=== PATIENT | male | born 1965 | race Hispanic/Latino ===

== ENCOUNTER 2024-05-16 15:45 | Inpatient (IN) | payer OTHER ==
[~2024-05-16] VITALS: Ht 170.2 cm; Wt 124.7 kg
[2024-05-16 17:50] LABS: BASOPHILS % 0.3 % (0.0-1.0); EOSINOPHILS # (AUTO) 0.1 (0.0-0.4); EOSINOPHILS % 0.4 % (0.0-6.0); HEMATOCRIT 49.3 % (38.2-49.6); HEMOGLOBIN 16.7 g/dL (14.0-18.0); LYMPHOCYTES # (AUTO) 1.9 (1.0-3.2); LYMPHOCYTES % 16.3 % (18.0-39.1); MEAN CORPUSCULAR HEMOGLOBIN 32.5 pg (28-32); MEAN CORPUSCULAR HGB CONC 33.9 g/dL (31-35); MEAN CORPUSCULAR VOLUME 95.9 fL (81-99); MONOCYTES # (AUTO) 0.7 (0.2-0.8); MONOCYTES % 6.2 % (4.4-11.3); NEUTROPHILS # (AUTO) 8.7 (2.1-6.9); NEUTROPHILS % 76.5 % (38.7-80.0); PLATELET COUNT 265 x10e3/uL (140-360); RED BLOOD COUNT 5.14 x10e6/uL (4.3-5.7); RED CELL DISTRIBUTION WIDTH 12.8 % (11.7-14.4); WHITE BLOOD COUNT 11.44 x10e3/uL (4.8-10.8)
[2024-05-16 17:58] LABS: INR 1.08; PROTHROMBIN TIME 14.7 seconds (11.9-14.5)
[2024-05-16 17:59] LABS: PARTIAL THROMBOPLASTIN TIME 28.3 seconds (23.8-35.5)
[2024-05-16 18:04] LABS: ALBUMIN 3.7 g/dL (3.5-5.0); ALBUMIN/GLOBULIN RATIO 0.9 (0.8-2.0); ANION GAP 14.3 mmol/L (8-16); BILIRUBIN,TOTAL 3.6 mg/dL (0.2-1.2); CALCIUM 9.9 mg/dL (8.4-10.2); CREATININE, SERUM 0.92 mg/dL (0.72-1.25); TOTAL PROTEIN 7.8 g/dL (6.5-8.1)
[2024-05-16 18:05] LABS: POTASSIUM 3.3 mmol/L (3.5-5.1)
[2024-05-16] MEDS ORDERED: IOPAMIDOL 370 MG/ML 100 ML INFUS..BTL INJ ONE (18:08)
[2024-05-16 18:50] LABS: CLARITY,URINE SL CLOUDY (CLEAR); COLOR,URINE ORANGE (YELLOW); GLUCOSE, URINE NEGATIVE (NEGATIVE); KETONES,URINE 1+ (NEGATIVE); LEUKOCYTE ESTERASE ,URINE NEGATIVE (NEGATIVE); NITRITE,URINE NEGATIVE (NEGATIVE); PH,URINE 5.5 (5 - 7); PROTEIN,URINE DIPSTICK 1+ (NEGATIVE); URINE UROBILINOGEN 0.2 mg/dL (0.2 - 1)
[2024-05-16 18:51] LABS: BILIRUBIN,URINE LARGE (NEGATIVE)
[2024-05-16 18:58] LABS: AMORPHOUS SEDIMENT,URINE MODERATE (FEW); BACTERIA,URINE RARE /HPF; RBC,URINE 0-5 /HPF (0-5); WBC,URINE (MAN) 0-5 /HPF (0-5)
[2024-05-16] MEDS: SODIUM CHLORIDE 0.9% 1000ML 1,000 ML IV ONE (19:00)
[2024-05-16] MEDS ORDERED: Morphine 4mg INJECTION 4 MG/ML INJ IV PRN (20:00)
[2024-05-16] MEDS ORDERED: ONDANSETRON HCL INJ 2MG/ML 2ML 2 MG/ML VIAL IV PRN (20:00)
[2024-05-16 23:00] VITALS: TEMP 98
[2024-05-17] VITALS (9 sets, daily range): BP systolic 124–158; BP diastolic 79–92; PULSE 61–88; RESP 16–20; TEMP 97.7–98.5; O2SAT 97–100
[2024-05-17] MEDS: SODIUM CHLORIDE 0.9% 1000ML 1,000 ML IV SCH (01:03)
[2024-05-17] MEDS ORDERED: ASPIRIN81 MG PO (02:58)
[2024-05-17] MEDS ORDERED: OMEGA-31000 MG PO (03:09)
[2024-05-17] MEDS ORDERED: LOPRESSOR25 MG PO (03:09)
[2024-05-17] MEDS ORDERED: zinc PO (03:09)
[2024-05-17] MEDS ORDERED: PANTOPRAZOLE SO40 MG PO (03:09)
[2024-05-17] MEDS ORDERED: CICLOPIROX6.6 ML TOP (03:09)
[2024-05-17] MEDS ORDERED: MULTI-VITAMIN1 EACH PO (03:09)
[2024-05-17] MEDS ORDERED: KETOCONAZOLE120 ML TOP (03:09)
[2024-05-17 05:32] LABS: BASOPHILS % 0.3 % (0.0-1.0); EOSINOPHILS # (AUTO) 0.1 (0.0-0.4); HEMATOCRIT 41.1 % (38.2-49.6); HEMOGLOBIN 14.5 g/dL (14.0-18.0); LYMPHOCYTES % 17.5 % (18.0-39.1); MEAN CORPUSCULAR HEMOGLOBIN 32.4 pg (28-32); MEAN CORPUSCULAR HGB CONC 35.3 g/dL (31-35); MEAN CORPUSCULAR VOLUME 91.9 fL (81-99); MONOCYTES # (AUTO) 0.8 (0.2-0.8); MONOCYTES % 6.8 % (4.4-11.3); NEUTROPHILS # (AUTO) 8.6 (2.1-6.9); NEUTROPHILS % 73.9 % (38.7-80.0); PLATELET COUNT 228 x10e3/uL (140-360); RED BLOOD COUNT 4.47 x10e6/uL (4.3-5.7); WHITE BLOOD COUNT 11.63 x10e3/uL (4.8-10.8)
[2024-05-17 06:05] LABS: ALBUMIN 3.1 g/dL (3.5-5.0); ALBUMIN/GLOBULIN RATIO 0.9 (0.8-2.0); ANION GAP 14.3 mmol/L (8-16); BILIRUBIN,TOTAL 2.6 mg/dL (0.2-1.2); CREATININE, SERUM 0.75 mg/dL (0.72-1.25); TOTAL PROTEIN 6.6 g/dL (6.5-8.1)
[2024-05-17 06:06] LABS: POTASSIUM 3.3 mmol/L (3.5-5.1)
[2024-05-17] MEDS ORDERED: GADOBENATE DIMEGLUMINE 1 ML IV ONE (08:05)
[2024-05-17] MEDS ORDERED: HYDRALAZINE HCL 20 MG/ML VIAL IV PRN (10:45)
[2024-05-17] MEDS ORDERED: ACETAMINOPHEN 325 MG TAB PO PRN (10:45)
[2024-05-17] MEDS: OMEGA 3 POLYUNSAT FATTY ACIDS 1000 MG SOFTGEL PO SCH (12:09)
[2024-05-17] MEDS: POTASSIUM CHLORIDE 10MEQ EA PO ONE (12:10)
[2024-05-17] MEDS: MULTIVITAMINS/MINERALS TAB PO SCH (12:10)
[2024-05-17] MEDS: PANTOPRAZOLE SOD 40 MG TABEC PO SCH (12:10)
[2024-05-17] MEDS: METOPROLOL TARTRATE 25 MG TAB PO SCH (12:13)
[2024-05-17] MEDS: ASPIRIN 81 MG CHEW TAB PO SCH (12:14)
[2024-05-18] VITALS (8 sets, daily range): BP systolic 113–147; BP diastolic 89–99; PULSE 61–79; RESP 17–20; TEMP 98.5–98.9; O2SAT 97–100
[2024-05-18 05:45] LABS: BASOPHILS % 0.3 % (0.0-1.0); EOSINOPHILS # (AUTO) 0.2 (0.0-0.4); EOSINOPHILS % 2.3 % (0.0-6.0); HEMATOCRIT 45.3 % (38.2-49.6); HEMOGLOBIN 15.2 g/dL (14.0-18.0); LYMPHOCYTES % 22.7 % (18.0-39.1); MEAN CORPUSCULAR HEMOGLOBIN 32.8 pg (28-32); MEAN CORPUSCULAR HGB CONC 33.6 g/dL (31-35); MEAN CORPUSCULAR VOLUME 97.6 fL (81-99); MONOCYTES # (AUTO) 0.6 (0.2-0.8); NEUTROPHILS % 67.4 % (38.7-80.0); PLATELET COUNT 226 x10e3/uL (140-360); RED BLOOD COUNT 4.64 x10e6/uL (4.3-5.7); RED CELL DISTRIBUTION WIDTH 12.9 % (11.7-14.4); WHITE BLOOD COUNT 8.85 x10e3/uL (4.8-10.8)
[2024-05-18 06:11] LABS: ALBUMIN 3.3 g/dL (3.5-5.0); ALBUMIN/GLOBULIN RATIO 0.9 (0.8-2.0); ANION GAP 13.2 mmol/L (8-16); BILIRUBIN,TOTAL 2.3 mg/dL (0.2-1.2); CALCIUM 9.5 mg/dL (8.4-10.2); CREATININE, SERUM 0.79 mg/dL (0.72-1.25); POTASSIUM 4.2 mmol/L (3.5-5.1)
[2024-05-18] MEDS: METOPROLOL TARTRATE 25 MG TAB PO SCH (08:45)
[2024-05-19] VITALS: BP 142/97; PULSE 58; RESP 17; TEMP 97.6; O2SAT 100
[2024-05-19 04:00] VITALS: BP 106/86; PULSE 63; RESP 17; TEMP 98.3; O2SAT 98
[2024-05-19 05:30] LABS: BASOPHILS % 0.5 % (0.0-1.0); EOSINOPHILS # (AUTO) 0.3 (0.0-0.4); EOSINOPHILS % 2.9 % (0.0-6.0); HEMATOCRIT 42.4 % (38.2-49.6); HEMOGLOBIN 15.2 g/dL (14.0-18.0); LYMPHOCYTES # (AUTO) 2.3 (1.0-3.2); LYMPHOCYTES % 26.7 % (18.0-39.1); MEAN CORPUSCULAR HGB CONC 35.8 g/dL (31-35); MEAN CORPUSCULAR VOLUME 92.2 fL (81-99); MONOCYTES # (AUTO) 0.7 (0.2-0.8); MONOCYTES % 8.3 % (4.4-11.3); NEUTROPHILS # (AUTO) 5.4 (2.1-6.9); NEUTROPHILS % 61.1 % (38.7-80.0); PLATELET COUNT 221 x10e3/uL (140-360); RED CELL DISTRIBUTION WIDTH 12.7 % (11.7-14.4); WHITE BLOOD COUNT 8.77 x10e3/uL (4.8-10.8)
[2024-05-19 05:52] LABS: ALBUMIN 3.3 g/dL (3.5-5.0); ALBUMIN/GLOBULIN RATIO 0.9 (0.8-2.0); ANION GAP 14.5 mmol/L (8-16); BILIRUBIN,TOTAL 1.9 mg/dL (0.2-1.2); CALCIUM 9.5 mg/dL (8.4-10.2); CREATININE, SERUM 0.79 mg/dL (0.72-1.25); POTASSIUM 3.5 mmol/L (3.5-5.1); TOTAL PROTEIN 6.8 g/dL (6.5-8.1)
[2024-05-19 06:16] LABS: CHOL/HDL RATIO 6.1 (3.9-4.7)
[2024-05-19 08:55] VITALS: BP 106/86; PULSE 63; RESP 17; TEMP 98.3; O2SAT 98
[2024-05-19 12:09] VITALS: BP 121/84; PULSE 71; RESP 16; TEMP 98.8; O2SAT 99
[2024-05-20 07:15] LABS: HEPATITIS A ANTIBODY IGM (P) Negative; HEPATITIS B CORE IGM (P) Negative; HEPATITIS B SURFACE AG (P) Negative; HEPATITIS C ANTIBODY Non Reactive
== END 2024-05-19 13:19 | disposition home or self-care (01) | DRG 439 ==
LOC: ER 17:27 → ERHOLD 19:57 → MED/SURG 05-17 02:35 → MED/SURG2 05-17 14:50 → OBSVTOIN 05-17 16:07
PROVIDERS: ADMIT Internal Medicine; ATTEND Internal Medicine
DX: K85.10 Biliary acute pancreatitis without necrosis or infection (principal); R17 Unspecified jaundice; Z68.41 Body mass index [BMI] 40.0-44.9, adult; E66.9 Obesity, unspecified; I10 Essential (primary) hypertension; K21.9 Gastro-esophageal reflux disease without esophagitis; R00.2 Palpitations; Z79.82 Long term (current) use of aspirin
CPT/HCPCS: 36415; 74177; 74183; 80053; 80061; 81001; 82270; 83690; 84478; 85025; 85610; 85730; 99284; G0378; J7030; Q9967